=== PATIENT | male | born 1980 | race Two or more races ===

== ENCOUNTER 2024-03-30 05:40 | Day surgery (SDC) | payer MEDICAID, SELFPAY ==
--- NOTE | 2024-03-27 07:00 | EKG_ITS ---
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
[2024-03-27 07:37] VITALS: BMI 28.8
[2024-03-27 08:35] LABS: Collection Type, Urine Clean Catch; Squamous Epithelial Cell,Urine 0 /hpf (0-5)
[2024-03-27 09:30] LABS: Basophils % (Auto) 0 % (0-2.5); Eosinophils # (Auto) 0.3 Thou/mm3 (0.0-0.5); Eosinophils % (Auto) 5 % (0-10); Hematocrit 47.9 % (41.0-53.0); Hemoglobin 15.8 g/dL (13.5-16.0); Immature Granulocytes % (Auto) 0 % (0-0); Immature Granulocytes Auto 0.01 Thou/mm3 (0.00-0.00); Lymphocytes # (Auto) 2.2 Thou/mm3 (1.0-4.8); Lymphocytes % (Auto) 40 % (10-50); Mean Corpuscular Hemoglobin 30.9 pg (25.0-35.0); Mean Corpuscular Volume 94 fL (80-100); Monocytes # (Auto) 0.4 Thou/mm3 (0.0-0.8); Monocytes % (Auto) 8 % (0-12); Neutrophils # (Auto) 2.6 Thou/mm3 (1.8-7.7); Neutrophils % (Auto) 47 % (37-80); Nucleated Red Blood Cell % 0 /100 WBC (0); Platelet Count 202 Thou/mm3 (140-440); RDW Standard Deviation 44.8 fL (35.1-43.9); Red Blood Count 5.12 Miln/mm3 (4.50-5.90); White Blood Count 5.5 Thou/mm3 (3.8-10.6)
[2024-03-27 09:31] LABS: Bilirubin,Urine Negative (Negative); Blood,Urine Negative (Negative); Clarity,Urine Clear (Clear/Hazy); Color,Urine Lt-Yellow (Lt Yel-Yel); Glucose, Urine Negative (Negative); Hyaline Casts,Urine < 1 /hpf (0-1); Ketones,Urine Negative (Negative); Leukocyte Esterase,Urine Negative (Negative); Nitrite,Urine Negative (Negative); Protein,Urine Negative (Neg - Trace); RBC,Urine 1 /hpf (0-3); Specific Gravity,Urine 1.016 (1.001-1.035); Urobilinogen,Urine Negative mg/dL (0.0-1.0); WBC,Urine 1 /hpf (0-5)
[2024-03-27 09:41] LABS: Alanine Aminotransferase 26 U/L (10-49); Albumin/Globulin Ratio 1.9 (1.2-2.2); Alkaline Phosphatase 85 U/L (46-116); Anion Gap 9 (7-16); Aspartate Amino Transferase 22 U/L (0-34); BUN/Creatinine Ratio 11 Ratio (12-20); Bilirubin,Total 0.4 mg/dL (0.3-1.2); Blood Urea Nitrogen 11 mg/dL (9-23); Calcium 9.9 mg/dL (8.3-10.6); Calcium (Corrected) 9.9 mg/dL (8.5-10.1); Carbon Dioxide 25.4 mMol/L (20.0-31.0); Chloride 105 mMol/L (98-107); Estimated Creatinine Clearance 83.6 mL/min (>60); Globulin 2.7 gm/dL (2.3-3.5); Glucose 113 mg/dL (74-106); Osmolality,Calculated 277 (275-295); Partial Thromboplastin Time 27.9 Seconds (22.0-36.0); Potassium 3.8 mMol/L (3.4-5.1); Sodium 139 mMol/L (136-145); Total Protein 7.7 gm/dL (5.7-8.2); eGFR > 60 See Note
--- NOTE | 2024-03-27 13:37 | PD.SURHP ---
HPI Date of Admission March 30, 2024 Chief Complaint Chief Complaint: Umbilical hernia HPI This 43-year-old gentleman is brought to the hospital for repair of a painful umbilical hernia that has not been reducible. 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 He will undergo repair of the umbilical hernia with possible implantation of a patch. Risk benefits alternatives were discussed with the patient and informed consent is obtained. Past Medical History Past Medical History NEUROLOGIC: Negative Neurological Disorders CARDIAC: Positive Cardiac Disorders and Hypertension; Negative Congestive Heart Failure RESPIRATORY: Positive Respiratory Disorders (Valley fever); Negative Chronic Obstructive Pulmonary Disease (COPD) GASTROINTESTINAL: Negative Gastrointestinal Disorders or Hepatitis GENITOURINARY: Negative Genitourinary Disorders or Renal Disease MUSCULOSKELETAL: Positive Musculoskeletal Disorders (valley fever on his back) ENT: Negative History of ENT Problems ENDOCRINE: Negative Endocrine Disorders, Diabetes Mellitus Type 1 or Diabetes Mellitus Type 2 HEMATOLOGIC: Negative Blood Disorders OTHER HISTORY: Positive Hospitalization (surgery), Chicken Pox and Measles; Negative Autoimmune Disease, Shingles, Blood Transfusions, Anesthesia Reactions or Cancer Family History FAMILY HISTORY: Positive Family Cardiac Disorders; Negative Family Psychiatric Problems, Family Respiratory Disorders, Family Gastrointestinal Problems, Family Genitourinary Problems, Family Endocrine Disorders, Family Reproductive Disorders, Family Musculoskeletal Disorders, Family Cancer, Family Surgery or Family Anesthesia Reaction Surgical History SURGICAL: Positive of Back Surgery (Has metal) Social History SMOKING STATUS: Never smoker Travel History EBOLA RISK: No Meds Home Medications and Allergies Home Medications ?Medication ?Instructions ?Recorded ?Confirmed ?Type doxycycline hyclate 100 mg capsule 100 mg PO QDAY 03/27/24 03/27/24 History fluconazole 200 mg tablet 600 mg PO BID 03/27/24 03/27/24 History lisinopril 20 mg tablet 20 mg PO QDAY 03/27/24 03/27/24 History Allergies Allergy/AdvReac Type Severity Reaction Status Date / Time No Known Allergies Allergy Verified 03/27/24 07:34 Exam Constitutional Constitutional: no acute distress Routine HEENT Exam Head: Present normocephalic Eye: Present EOMI and PERRL ENT: Present mucous membranes moist Routine Neck Exam Neck: Present supple and trachea midline Routine Chest/Breast/Axilla Exam Chest wall: Absent tenderness or mass Routine Respiratory Exam Respiratory: Present chest non-tender, lungs clear, normal breath sounds and no resp distress; Absent respiratory distress Routine Cardiovascular Exam Cardiovascular: Present RRR Routine Abdominal Exam Abdominal: Present soft, normoactive bowel sounds and hernia (Painful partially reducible umbilical hernia is present. Bowel tones are normal. There is no guarding or rebound tenderness. 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 He has some muscle spasms and pain and has been treated for a long time. Currently his condition is stable.) Routine Skin Exam Skin: Present intact, dry and warm Routine Neurological Exam Neurological: Present alert, oriented X3 and CN II-XII intact Routine Psychiatric Exam Psychiatric: Present normal affect and normal thought process Assessment & Plan Problem List (1) Umbilical hernia with obstruction but no gangrene: Status: Acute (2) Coccidioidomycosis: Status: Acute Plan Repair of umbilical hernia with possible implantation of a patch. Quality Measures Quality Measures VTE prophylaxis
[2024-03-30] VITALS (11 sets, daily range): BP systolic 105–132; BP diastolic 71–112; PULSE 73–105; RESP 17–23; TEMP 36.4; O2SAT 95–99; BMI 27.4
[2024-03-30] MEDS: RINGERS LACTATED 1000 ML 1,000 ML 60 ML IV (07:07)
--- NOTE | 2024-03-30 07:07 | SUR.PREOP ---
Made Dr. Merritt aware of pt.'s bp 132/112, pt. took bp med this morning at 0400. Pt. expressed he is very nervous. No orders given at this time.
--- NOTE | 2024-03-30 09:50 | SUR.PHASEI ---
0950 Patient arrived to recovery resting comfortably in [facility], on oxygen 8L via oxy mask, breathing unlabored, vital signs stable, dressing intact to abdomen; steri-strips, telfa, fluffs, medipore tape, no bleeding noted, lungs sounds clear upon auscultation, bilateral radial pulses present when palpated, report received from Charley ROSADO and Dr. Merritt
--- NOTE | 2024-03-30 10:09 | PD.SUROPNT ---
Date of Procedure 03/30/24 Pre Op Diagnosis Incarcerated umbilical hernia Post Op Diagnosis Same. Procedure Repair of incarcerated umbilical hernia measuring 7 cm in diameter and omentectomy on March 30, 2024 Findings This patient had a large incarcerated umbilical hernia with a large amount of calcified omentum within the hernia sac. Bowel was not involved in the incarceration just the omentum. The abdominal wall was markedly attenuated likely from previous use of steroids. There were no other remarkable findings. Procedure Description The patient is interviewed in the preoperative area and the procedure was discussed in detail with the patient including expectation of outcomes. Explanation of the technique and complications. An informed consent was obtained. Anesthesia consent was obtained by the anesthesiologist. The hernia sites were marked on the surface. Patient is brought back to the operating room. The patient is positioned supine on the operating table and general anesthesia is administered in a satisfactory manner. The chest abdomen and thigh genitalia regions are prepped and draped in usual manner. IV antibiotics were given and a timeout procedure was carried out. The anesthesia quarter percent Marcaine with epinephrine is used. Vertical incision is made around the umbilicus. Dissection is carried out in the subcutaneous tissue to the fascia and the umbilical hernia defect is identified. Gentle dissection is carried out and hernia sac is dissected. The sac is opened and was removed as specimen. There were significantly dense adhesions of the omentum within the hernia sac and surrounding subcutaneous tissue. There was a calcified mass within the incarcerated umbilical hernia with the omentum and omentum was sequentially clamped and ligated with 2-0 silk ties and was removed. The contents are reduced. Hemostasis is achieved. Dissection is carried out circumferentially from the peritoneal side to make sure there were no adhesions and bowel attached to the anterior abdominal wall. Lysis of adhesions is carried out on the peritoneal side releasing the omental adhesions circumferentially to about 5 cm around. The defect is measured. It is about 7 cm in length and 6 cm in the width. The laps and instrument counts are obtained they are correct x2 and then I decided to repair the hernia defect primarily as it was coming together nicely. There was no tension. The hernia defect was repaired using 0 Ethibond interrupted [id number] stitches. Laps and instrument counts were correct ?2. Operative field is thoroughly irrigated with saline solution and the subcutaneous tissues approximated with 3-0 Vicryl interrupted suture. The skin is approximated by 4-0 Monocryl subcuticular stitches. Steri-Strips are applied. Sterile dressing and abdominal binder is applied. Patient tolerated the procedure very well. Complications none. Patient is transferred to recovery room in a satisfactory condition. Anesthesia GETA Drains None. Implants None. Pathology / specimen Other (Umbilical hernia sac and omentum) Estimated Blood Loss 10 Condition Stable Disposition PACU Surgeon Enoch Arreguin MD Surgical Staff Operation Date: 03/30/24 07:30 Case Staff Anesthesiologist: Bhavesh Merritt RN First Assistant: Yajaira Wilburn RN edge grinder machine Alayna director medical surgical
[2024-03-30] MEDS: fentaNYL CIT INJ 50 mCg/ML AMP 2ML 25 MCG IV ×2 (10:10→10:17)
[2024-03-30] MEDS: KETOROLAC INJ 30 MG/ML VIAL IVP (10:12)
[2024-03-30] MEDS: ACETAMINOPHEN IVPB 1,000 MG/100 ML VIAL 250 MG IV (10:22)
--- NOTE | 2024-03-30 10:44 | SUR.PHASEII ---
patient ate a jello and drinking apple juice; tolerating well
--- NOTE | 2024-03-30 11:07 | SUR.PHASEII ---
1107 Patient meets discharge criteria from recovery, awake and alert, breathing unlabored, vital signs stable, denies pain, dressing intact; no bleeding noted, patient ate a jello and drinking apple juice; denies nausea, patient assisted with dressing into his clothing by his friend, discharge instructions given to patient and patients friend with the assistance of the telephone party plan sales consultant Kalen ID#[id number], friend signed discharge instructions. Patient given all his belongings prior to discharge, transported via wheelchair and left in a private vehicle.
== END 2024-03-30 11:07 | disposition home or self-care (01) ==
PROVIDERS: PCP Physician Assistant; Referring Provider Specialist; Visit Provider Specialist
PROC: (CPT 49594; principal; 2024-03-30 07:30)
DX: K42.0 Umbilical hernia with obstruction, without gangrene (principal); Z82.49 Family history of ischemic heart disease and other diseases of the circulatory system; Z01.810 Encounter for preprocedural cardiovascular examination
CPT/HCPCS: 49594; 36415; 80053; 81001; 85025; 85610; 85730; 93005; A4217; A4649; J0131; J0690; J1580; J1885; J2250; J2371; J2405; J2704; J2765; J3010; J3490; J7120; A9270